=== PATIENT | male | born 1975 | race American Indian/Alaskan Native ===

== ENCOUNTER 2018-01-01 22:05 | Emergency (ER) | payer OTHER ==
[2018-01-01 22:52] VITALS: BP 138/97
--- NOTE | 2018-01-01 23:43 | XRay Report ---
FINAL REPORT PROCEDURE: XR CHEST ROUTINE 2V TECHNIQUE: PA and lateral chest radiographs were obtained. CPT 65707 HISTORY: sob COMPARISON: No prior studies are available for comparison. FINDINGS: Heart: Normal. Mediastinum/Vessels: Normal. Lungs/Pleural space: Normal. Bony thorax: No acute osseous abnormality. Other: IMPRESSION: Normal examination.
[2018-01-02] MEDS ORDERED: DECADRON IM ONE (03:08)
[2018-01-02] MEDS ORDERED: DECADRON ONE (03:08)
[2018-01-02] MEDS ORDERED: PROVENTIL IH ONE ×2 (03:08)
--- NOTE | 2018-01-02 03:08 | Emergency Department Report ---
ED Shortness of Breath HPI - General Chief Complaint: Dyspnea/Respdistress Stated Complaint: BRONCHITIS Time Seen by Provider: 01/02/18 02:59 Source: patient Mode of arrival: Ambulatory Limitations: No Limitations - History of Present Illness Initial Comments: 42-year-old -[place] male comes in complaining of cough shortness of breathing. Patient admits to sneezing and nasal congestion or rhinorrhea. Denies any fever or chills no nausea no vomiting. He reports that he has a past medical history of bronchitis and has not had a flareup in several years. 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 Complaint: shortness of breath -: This afternoon Improves With: nothing Worsens With: nothing Known History Of: asthma Associated Symptoms: pain with inspiration, cough - Related Data Previous Rx's Medication Instructions Recorded Last Taken Type ALBUTEROL Inhaler [ProAir HFA 2 puff IH QID PRN #1 inhalation 01/02/18 Unknown Rx Inhaler] methylPREDNISolone [Medrol] 4 mg PO QDAY #1 tab.ds.pk 01/02/18 Unknown Rx Allergies Allergy/AdvReac Type Severity Reaction Status Date / Time No Known Allergies Allergy Unverified 01/01/18 22:53 ED Review of Systems ROS: Stated complaint: BRONCHITIS Other details as noted in HPI Constitutional: denies: chills, fever Eyes: denies: eye pain, eye discharge, vision change ENT: congestion (nasal congestion), other (sneezing, rhinorrhea) Respiratory: cough, shortness of breath, wheezing Cardiovascular: denies: chest pain, palpitations Endocrine: no symptoms reported Gastrointestinal: denies: abdominal pain, nausea, diarrhea Genitourinary: denies: urgency, dysuria Musculoskeletal: denies: back pain, joint swelling, arthralgia Skin: denies: rash, lesions Neurological: denies: headache, weakness, paresthesias Psychiatric: denies: anxiety, depression Hematological/Lymphatic: denies: easy bleeding, easy bruising ED Past Medical Hx - Past Medical History Hx Asthma: Yes (bronchitis) - Social History Smoking Status: Never Smoker - Medications Home Medications: Home Medications Medication Instructions Recorded Confirmed Last Taken Type ALBUTEROL Inhaler [ProAir HFA 2 puff IH QID PRN #1 inhalation 01/02/18 Unknown Rx Inhaler] methylPREDNISolone [Medrol] 4 mg PO QDAY #1 tab.ds.pk 01/02/18 Unknown Rx ED Physical Exam - General Limitations: No Limitations General appearance: alert, in no apparent distress - Head Head exam: Present: atraumatic, normocephalic - Eye Eye exam: Present: normal appearance - ENT ENT exam: Present: mucous membranes moist - Neck Neck exam: Present: normal inspection - Respiratory Respiratory exam: Present: wheezes - Cardiovascular Cardiovascular Exam: Present: regular rate, normal rhythm. Absent: systolic murmur, diastolic murmur, rubs, gallop - Extremities Exam Extremities exam: Present: normal inspection. Absent: pedal edema - Back Exam Back exam: Present: normal inspection - Neurological Exam Neurological exam: Present: alert, oriented X3 - Psychiatric Psychiatric exam: Present: normal affect, normal mood - Skin Skin exam: Present: warm, dry, intact, normal color. Absent: rash ED Course Vital Signs 01/01/18 22:49 Temperature 98.4 F Pulse Rate 88 Blood Pressure 138/97 O2 Sat by Pulse 94 Oximetry - Reevaluation(s) Reevaluation #1: 01/02/18 05:19 Patient reports he feels much better after having the treatment. ED Medical Decision Making - Radiology Data Radiology results: report reviewed, image reviewed FINAL REPORT PROCEDURE: XR CHEST ROUTINE 2V TECHNIQUE: PA and lateral chest radiographs were obtained. CPT 69744 HISTORY: sob COMPARISON: No prior studies are available for comparison. FINDINGS: Heart: Normal. Mediastinum/Vessels: Normal. Lungs/Pleural space: Normal. Bony thorax: No acute osseous abnormality. Other: IMPRESSION: Normal examination. Transcribed By: [facility] [place] Dictated By: TWILA ARIAS Electronically Authenticated By: TWILA ARIAS Signed Date/Time: 01/01/182338 DD/ 38 TD/TT: 01/01/182338 - Medical Decision Making {42} year old male patient presents today with{bronchitis F}. [Chest xray} reveals[normal examination.]. Patient is in no acute distress at this time. We 'll give patient albuterol 5 mg nebulizer treatment as well as Decadron 10 mg IM. He will be discharged home and encouraged to follow up with a primary care provider. He is encouraged to return to the emergency room for any worsening symptoms. Critical care attestation.: If time is entered above; I have spent that time in minutes in the direct care of this critically ill patient, excluding procedure time. ED Disposition Clinical Impression: Asthma Qualifiers: Asthma severity: unspecified severity Asthma persistence: unspecified Asthma complication type: unspecified Qualified Code(s): J45.909 - Unspecified asthma, uncomplicated Allergic rhinitis Qualifiers: Allergic rhinitis trigger: unspecified Allergic rhinitis seasonality: unspecified seasonality Qualified Code(s): J30.9 - Allergic rhinitis, unspecified Disposition: DC- TO HOME OR SELFCARE Is pt being admited?: No Does the pt Need Aspirin: No Condition: Stable Instructions: Asthma (ED) Additional Instructions: Please take medication as prescribed. Please follow up with a primary care provider for further evaluation and management. Prescriptions: ALBUTEROL Inhaler [ProAir HFA Inhaler] 2 puff IH QID PRN #1 inhalation PRN Reason: Shortness Of Breath methylPREDNISolone [Medrol] 4 mg PO QDAY #1 tab.ds.pk Referrals: PRIMARY CAREMD [Primary Care Provider] - 3-5 Days [facility] [Provider Group] - 3-5 Days ROMEL THAO MD [Staff Physician] - 3-5 Days ROSITA MATA JR, MD [Staff Physician] - 3-5 Days Forms: Work/School Release Form(ED)
== END 2018-01-02 04:05 | disposition home or self-care (01) ==
LOC: ED 22:05
DX: J45.909 Unspecified asthma, uncomplicated (principal)
CPT/HCPCS: 71046; 94640; 96372; 99283; J1100

== ENCOUNTER 2018-02-21 18:17 | Emergency (ER) | payer OTHER ==
[2018-02-21] MEDS ORDERED: REGLAN IV ONE (19:41)
[2018-02-21] MEDS ORDERED: TORADOL IV ONE (19:41)
[2018-02-21] MEDS ORDERED: BENADRYL IV ONE (19:41)
[2018-02-21] MEDS ORDERED: NACL 0.9% 1000 ML 1,000 ML IV ONE (19:42)
--- NOTE | 2018-02-21 20:13 | Cat Scan Report ---
FINAL REPORT PROCEDURE: CT HEAD/BRAIN WO CON TECHNIQUE: Computerized tomography of the head was performed without contrast material. HISTORY: headache COMPARISON: No prior studies are available for comparison. FINDINGS: There is no CT evidence of intracranial mass, hemorrhage, acute territorial infarction, or hydrocephalus. The intracranial arteries are symmetric in density. Calvarium is intact. IMPRESSION: No CT evidence of acute intracranial abnormality
[2018-02-21 20:25] LABS: Basophils # (Auto) 0.1 K/mm3 (0.0-0.1); Basophils % (Auto) 1.4 % (0.0-1.8); Eosinophils % (Auto) 0.5 % (0.0-4.3); Hematocrit 44.8 % (35.5-45.6); Hemoglobin 14.6 gm/dl (11.8-15.2); Lymphocytes # (Auto) 1.8 K/mm3 (1.2-5.4); Lymphocytes % (Auto) 26.9 % (13.4-35.0); Mean Corpuscular HGB Conc 33 % (32-34); Mean Corpuscular Hemoglobin 29 pg (28-32); Mean Corpuscular Volume 88 fl (84-94); Monocytes # (Auto) 0.6 K/mm3 (0.0-0.8); Monocytes % (Auto) 8.9 % (0.0-7.3); Platelet Count 202 K/mm3 (140-440); Red Cell Distribution Width 13.5 % (13.2-15.2)
--- NOTE | 2018-02-21 20:38 | Emergency Department Report ---
<SADIA REY - Last Filed: 02/21/18 22:59> ED Headache HPI - General Chief Complaint: Headache Stated Complaint: MIGRAINE HEADACHE Time Seen by Provider: 02/21/18 19:43 - History of Present Illness Initial Comments: This is a 42-year-old male nontoxic, well nourished in appearance, no acute signs of distress presents to the ED with c/o of acute headache. Patient describes headache as diffuse with level of 3 out of 10. Patient denies thunderclap headache. Patient denies any radiation of pain. Patient denies any head trauma. Patient denies any visual changes. Patient denies worse headache. Patient stated that fever started this morning around 3 AM prior to the headaches. Patient stated that darkness makes headache better and bright lights make the headache worse. Patient denies any numbness, tingling, chills, nausea, vomiting, chest pain, shortness of breath, stiff neck. Patient denies nuchal rigidity. Patient denies any radiation of pain. Patient denies any allergies. PMH includes sinusitis. Quality: mild, achy Head Injury Location: other (diffuse) Recent Head Trauma: no recent headache/trauma Associated Symptoms: fever/chills. denies: confusion, fatigue, facial pain, flushing, loss of consciousness, nausea/vomiting, nasal congestion, nasal drainage, numbness in legs/feet, rash, seizures, sinus infection, stiff neck, vision changes, weakness Allergies/Adverse Reactions: Allergies No Known Allergies Allergy (Unverified 01/01/18 22:53) Home Medications: Ambulatory Orders ALBUTEROL Inhaler [ProAir HFA Inhaler] 2 puff IH QID PRN #1 inhalation 01/02/18 methylPREDNISolone [Medrol] 4 mg PO QDAY #1 tab.ds.pk 01/02/18 Acetaminophen 500 mg PO Q6H PRN #30 tablet 02/21/18 Butalb/Acetamin/Caff 50-325-40 [Fioricet] 1 tab PO Q6HR PRN #12 tab 02/21/18 ED Review of Systems ROS: Stated complaint: MIGRAINE HEADACHE Other details as noted in HPI Constitutional: chills, fever Eyes: denies: eye pain, eye discharge, vision change ENT: denies: ear pain, throat pain Respiratory: denies: cough, shortness of breath, wheezing Cardiovascular: denies: chest pain, palpitations Endocrine: no symptoms reported Gastrointestinal: denies: abdominal pain, nausea, diarrhea Genitourinary: denies: urgency, dysuria Musculoskeletal: denies: back pain, joint swelling, arthralgia Skin: denies: rash, lesions Neurological: headache. denies: weakness, paresthesias Psychiatric: denies: anxiety, depression Hematological/Lymphatic: denies: easy bleeding, easy bruising ED Past Medical Hx - Past Medical History Previous Medical History?: Yes Hx Asthma: Yes (bronchitis) Additional medical history: sinus infection - Surgical History Past Surgical History?: No - Social History Smoking Status: Never Smoker Substance Use Type: Alcohol, Other - Medications Home Medications: Home Medications Medication Instructions Recorded Confirmed Last Taken Type ALBUTEROL Inhaler [ProAir HFA 2 puff IH QID PRN #1 inhalation 01/02/18 Unknown Rx Inhaler] methylPREDNISolone [Medrol] 4 mg PO QDAY #1 tab.ds.pk 01/02/18 Unknown Rx Acetaminophen 500 mg PO Q6H PRN #30 tablet 02/21/18 Unknown Rx Butalb/Acetamin/Caff 50-325-40 1 tab PO Q6HR PRN #12 tab 02/21/18 Unknown Rx [Fioricet] ED Physical Exam - General Limitations: No Limitations General appearance: alert, in no apparent distress - Head Head exam: Present: atraumatic, normocephalic - Eye Eye exam: Present: normal appearance, PERRL, EOMI Pupils: Present: normal accommodation - ENT ENT exam: Present: normal exam, normal orophraynx, mucous membranes moist, TM's normal bilaterally, normal external ear exam - Neck Neck exam: Present: normal inspection, full ROM. Absent: tenderness, meningismus, lymphadenopathy - Respiratory Respiratory exam: Present: normal lung sounds bilaterally. Absent: respiratory distress, wheezes, rales, rhonchi, stridor, chest wall tenderness, accessory muscle use, decreased breath sounds, prolonged expiratory - Cardiovascular Cardiovascular Exam: Present: regular rate, normal rhythm, tachycardia, normal heart sounds. Absent: bradycardia, irregular rhythm, systolic murmur, diastolic murmur, rubs, gallop - GI/Abdominal GI/Abdominal exam: Present: soft, normal bowel sounds. Absent: distended, tenderness, guarding, rebound, rigid, diminished bowel sounds - Rectal Rectal exam: Present: deferred - Extremities Exam Extremities exam: Present: normal inspection, full ROM, normal capillary refill. Absent: tenderness - Back Exam Back exam: Present: normal inspection, full ROM. Absent: tenderness, CVA tenderness (R), CVA tenderness (L), muscle spasm, paraspinal tenderness, vertebral tenderness, rash noted - Neurological Exam Neurological exam: Present: alert, oriented X3, CN II-XII intact, normal gait - Expanded Neurological Exam Expanded Patient oriented to: Present: person, place, time Cranial nerves: EOM's Intact: Normal, Gag Reflex: Normal, Facial Sensation: Normal Cerebellar function: Finger to Nose: Normal Upper motor neuron: Pronator Drift: Normal, Sensory Extinction: Normal Sensory exam: Upper Extremity Light Touch: Normal, Upper Extremity Pin Prick: Normal, Upper Extremity Temperature: Normal, UE 2 Point Discrimination: Normal, Lower Extremity Light Touch: Normal, Lower Extremity Pin Prick: Normal, Lower Extremity Temperature: Normal, LE 2 Point Discrimination: Normal Motor strength exam: RUE: 5, LUE: 5, RLE: 5, LLE: 5 Best Eye Response ([place]): (4) open spontaneously Best Motor Response ([place]): (6) obeys commands Best Verbal Response ([place]): (5) oriented Saul Total: 15 - Psychiatric Psychiatric exam: Present: normal affect, normal mood - Skin Skin exam: Present: warm, dry, intact, normal color. Absent: rash ED Course Vital Signs 02/21/18 02/21/18 02/21/18 18:39 20:56 22:20 Temperature 100.4 F H 101.0 F H 99.6 F Pulse Rate 92 H 82 Respiratory 20 16 Rate Blood Pressure 143/79 Blood Pressure 144/76 [Right] O2 Sat by Pulse 98 100 Oximetry - Reevaluation(s) Reevaluation #1: 02/21/18 20:42 Patient is speaking in full sentences with no signs of distress noted. Reevaluation #2: 02/21/18 21:07 Patient stated that headache is now subsided and resolved. Patient is rest comfortably with no signs of distress. - Consultations Consultation #1: 02/21/18 20:43 Patient has been consulted with Lesli Becerra about patient history, physical exam, and labs/CT results and examined patient and stated no LP to be done in the and agrees to the ED plan of care with no nucual rigidity or any meningitis symptoms and discharge plan of care. ED Medical Decision Making - Lab Data Result diagrams: 02/21/18 20:05 02/21/18 20:05 - Medical Decision Making This is a 42-year-old male that presents with headache and fever. Patient is stable and was examined by me and Dr. Reyes. As per Dr. Reyes, no lumbar puncture needed. Patient is neurologically stable. There is no stiff neck or neck pain. No meningitis symptoms. Fever etiology is uncertain but may be related to a viral process. Vital signs are stable. Patient is afebrile. Labs unremarkable. Chest xray obtained. UA obtained. Patient received Benadryl, Reglan, Toradol, and 1 L of normal saline which the patient stated that headache has subsided and resolved. Patient was instructed not to operate any machinery after discharged due to drowsiness of Benadryl. Patient stated that a family member will drive patient home. CT of head obtained and dictated by the radiologist within normal limits. PAtient is notified of the CT report with no questions noted. Patient was educated by me and Dr. Reyes about meningitis and encephalitis symptoms and had clear instructions to return to emergency room [facility] if symptoms of fever increased and headache increased and has neck stiffness or pain. Patient is discharged with Fioricet. Patient was referred to Follow-up with a primary care/neurologist doctor in 3-5 days or if symptoms worsen and continue return to emergency room as soon as possible. At time of discharge, the patient does not seem toxic or ill in appearance. No acute signs of distress noted. Patient agrees to discharge treatment plan of care. No further questions noted by the patient. Critical care attestation.: If time is entered above; I have spent that time in minutes in the direct care of this critically ill patient, excluding procedure time. ED Disposition Disposition: DC-01 TO HOME OR SELFCARE Is pt being admited?: No Does the pt Need Aspirin: No Condition: Stable Instructions: Butalbital/Aspirin/Caffeine (By mouth), Acute Headache (ED) Additional Instructions: Follow-up with a primary care doctor in 3-5 days or if symptoms worsen and continue as directed to you in the ED with worse headache, fevers, stiff neck or neck pain or any worsening symptoms, return to emergency room as soon as possible. Prescriptions: Acetaminophen 500 mg PO Q6H PRN #30 tablet PRN Reason: Fever >101 Butalb/Acetamin/Caff 50-325-40 [Fioricet] 1 tab PO Q6HR PRN #12 tab PRN Reason: Headache Referrals: PRIMARY CARE,MD [Primary Care Provider] - 3-5 Days ROMEL THAO MD [Staff Physician] - 3-5 Days [facility] [Outside] - 3-5 Days [facility] [Outside] - 3-5 Days Forms: Work/School Release Form(ED) <PANCHITO REYES - Last Filed: 02/21/18 23:41> ED Medical Decision Making - Lab Data Result diagrams: 02/21/18 20:05 02/21/18 20:05 - Medical Decision Making I have assessed this patient and agree with assessment and plan as written above by FRANCISCA Rey.
[2018-02-21 20:57] VITALS: BP 144/76
[2018-02-21 20:59] LABS: BUN/Creatinine Ratio 8; Blood Urea Nitrogen 10 mg/dL (9-20); Calcium 9.5 mg/dL (8.4-10.2); Hemolysis Index 6
[2018-02-21] MEDS ORDERED: TYLENOL ONE (21:00)
[2018-02-21] MEDS ORDERED: TYLENOL PO ONE (21:02)
[2018-02-21 21:52] LABS: Bilirubin,Urine NEG (Negative); Blood,Urine NEG (Negative); Color,Urine Yellow (Yellow); Mucus,Urine FEW /HPF; Protein,Urine <15 mg/dL mg/dL (Negative); Urobilinogen,Urine < 2.0 mg/dL (<2.0)
--- NOTE | 2018-02-21 22:54 | XRay Report ---
FINAL REPORT PROCEDURE: XR CHEST ROUTINE 2V TECHNIQUE: PA and lateral chest radiographs were obtained. CPT 72223 HISTORY: fever COMPARISON: 01/01/2018 FINDINGS: Heart: Normal. Mediastinum/Vessels: Normal. Lungs/Pleural space: No infiltrate, effusion, or pneumothorax. Bony thorax: No acute osseous abnormality. Other: IMPRESSION: No pulmonary infiltrates.
== END 2018-02-21 23:00 | disposition home or self-care (01) ==
LOC: ED 18:17
DX: R51 Headache (principal); R50.9 Fever, unspecified; J45.909 Unspecified asthma, uncomplicated
CPT/HCPCS: 36415; 70450; 71046; 80048; 81001; 85025; 96374; 96375; 99284; J1200; J1885; J2765; J7030; 96361